=== PATIENT | male | born 1985 | race Caucasian/White ===

== ENCOUNTER 2017-01-21 16:35 | Inpatient (IN) | payer MEDICAID ==
[2017-01-21 17:17] VITALS: RESP 18; O2SAT 99
[2017-01-21] MEDS ORDERED: Sodium Chloride 0.9% 1,000 ML IV STA ×2 (17:27→19:50)
--- NOTE | 2017-01-21 17:29 | ED PDOC ---
HPI: General Adult Time Seen by Provider: 01/21/17 16:59 Chief Complaint (Nursing): GI Problem Chief Complaint (Provider): vomiting Additional Complaint(s): 31-year-old male with no past medical history presents to emergency department with three-day history of nausea and vomiting associated with epigastric pain. Patient believes that he became ill after drinking alcohol 3 nights ago. He denies consumption of any new foods that could've cause stomach upset. No associated fever or chills, no recent travel. No known sick contacts. Patient complains of overall body aches that started today. He is unable to tolerate even sips of water. Past Medical History Reviewed: Historical Data Vital Signs: Last Vital Signs Temp 97.6 F 01/21/17 16:47 Pulse 90 01/21/17 16:47 Resp 18 01/21/17 16:47 BP 146/85 01/21/17 16:47 Pulse Ox 99 01/21/17 17:32 - Medical History PMH: No Chronic Diseases - Surgical History Other surgeries: jaw fracture repair - Family History Family History: States: No Known Family Hx - Living Arrangements Living Arrangements: With Family - Social History Current smoker - smoking cessation education provided: Yes ("sometimes") Alcohol: Social Drugs: Denies - Allergies Allergies/Adverse Reactions: Allergies Allergy/AdvReac Type Severity Reaction Status Date / Time No Known Allergies Allergy Verified 01/21/17 16:46 Review of Systems ROS Statement: Except As Marked, All Systems Reviewed And Found Negative Constitutional: Positive for: Weakness, Other (body aches). Negative for: Fever Cardiovascular: Negative for: Chest Pain Respiratory: Negative for: Cough, Shortness of Breath, SOB with Exertion Gastrointestinal: Positive for: Nausea, Vomiting, Abdominal Pain. Negative for : Diarrhea, Constipation, Melena, Hematochezia, Hematemesis, Rectal Pain Genitourinary Male: Negative for: Dysuria, Frequency Physical Exam - Reviewed Nursing Documentation Reviewed: Yes Vital Signs Reviewed: Yes - Physical Exam Appears: Positive for: Well, Non-toxic, No Acute Distress Head Exam: Positive for: ATRAUMATIC Skin: Positive for: Diaphoresis, Pallor Eye Exam: Positive for: Normal appearance, EOMI Neck: Positive for: Normal Cardiovascular/Chest: Positive for: Regular Rate, Rhythm Respiratory: Positive for: Normal Breath Sounds Gastrointestinal/Abdominal: Positive for: Tenderness (RUQ, epigastric region). Negative for: Distended, Guarding, Rebound Back: Negative for: L CVA Tenderness, R CVA Tenderness Extremity: Positive for: Normal ROM. Negative for: Pedal Edema Neurologic/Psych: Positive for: Alert, Oriented - Laboratory Results Result Diagrams: 01/21/17 16:55 01/21/17 16:55 - ECG O2 Sat by Pulse Oximetry: 99 Pulse Ox Interpretation: Normal Medical Decision Making Medical Decision Makin31 year old with vomiting and abdominal pain Plan: CBC CMP Lipase Urine dip BAL UDS IVF IV zofran IV pepcid Abd US: IMPRESSION: 4 mm suspected gallbladder polyp. Heterogeneous echotexture of the liver and spleen. Overall echogenic appearance of the liver may be seen in setting of hepatic parenchymal disease or fatty infiltration. 8:00 pm Patient is still nauseous after initial Zofran dose given, additional [address] abdomen and pelvis with oral and IV contrast ordered. Disposition - Clinical Impression Clinical Impression: Abdominal pain, Vomiting - Patient ED Disposition Is Patient to be Admitted: Transfer of Care - Disposition Disposition: Transfer of Care Disposition Time: 20:00 Condition: FAIR Patient Signed Over To: Rico Fleming Handoff Comments: Case was signed out to DIANNA Fleming pending CT and final disposition
[2017-01-21 17:40] LABS: BASO # 0.1 K/uL (0.0-0.2); BASO % 0.3 % (0.0-2.0); EOS # 0.1 K/uL (0.0-0.7); EOS % 0.2 % (0.0-4.0); HEMATOCRIT 52.1 % (35.0-51.0); LYMPH # 1.4 K/uL (1.0-4.3); LYMPH % 5.7 % (20.0-40.0); MEAN CELL VOLUME 77.9 fl (80.0-94.0); MEAN CORPUSCULAR HEMOGLOBIN 26.7 pg (27.0-31.0); MEAN CORPUSCULAR HGB CONC 34.2 g/dL (33.0-37.0); MEAN PLATELET VOLUME 9.3 fl (7.2-11.7); MONO # 1.9 K/uL (0.0-0.8); MONO % 7.5 % (0.0-10.0); NEUT # 21.7 K/uL (1.8-7.0); NEUT % 86.3 % (50.0-75.0); PLATELET COUNT 371 K/uL (130-400); WHITE BLOOD COUNT 25.1 K/uL (4.8-10.8)
[2017-01-21 18:02] LABS: CALCIUM 11.4 mg/dL (8.4-10.2); POTASSIUM 4.3 MMOL/L (3.6-5.0)
[2017-01-21 18:09] LABS: TOTAL PROTEIN 11.6 G/DL (6.3-8.2)
--- NOTE | 2017-01-21 18:44 | US ---
HISTORY: epigastric/ruq abd pain, vomiting COMPARISON: None available TECHNIQUE: Sonographic evaluation of the abdomen. FINDINGS: LIVER: Measures 14.6 cm in sagittal dimension. Heterogeneous echotexture. Overall echogenic appearance of the liver may be seen in setting of hepatic parenchymal disease or fatty infiltration. No focal hepatic mass identified. The main portal vein appears patent with normal directional flow. No intrahepatic bile duct dilatation. GALLBLADDER: 4 mm echogenic non shadowing focus presumably gallbladder polyp. No gallstones. No gallbladder wall thickening. Negative sonographic Weathers's sign as assessed by the color repairer. COMMON BILE DUCT: Measures 4 mm. PANCREAS: Not well visualized. RIGHT KIDNEY: Measures 10.4 x 3.9 x 5.6 cm. No obstructing calculus or hydronephrosis identified. LEFT KIDNEY: Measures 11.4 x 6.4 x 5.0 cm. No obstructing calculus or hydronephrosis identified. SPLEEN: Measures approximately 12.0 x 3.7 x 4.3 cm. Heterogeneous echotexture. AORTA: Limited views appear grossly unremarkable. IVC: Limited views appear grossly unremarkable. OTHER FINDINGS: None. IMPRESSION: 4 mm suspected gallbladder polyp. Heterogeneous echotexture of the liver and spleen. Overall echogenic appearance of the liver may be seen in setting of hepatic parenchymal disease or fatty infiltration.
[2017-01-21] MEDS ORDERED: Iohexol 240 (50 ml) PO STA (19:51)
[2017-01-21 20:45] LABS: VENOUS BLOOD GAS BASE EXCESS 6.4 mmol/L (0.0-2.0); VENOUS BLOOD GAS PCO2 36 mmHg (40-60); VENOUS BLOOD PH 7.52 (7.32-7.43)
[2017-01-21 20:54] LABS: ALCOHOL SERUM < 10 mg/dl (0-10)
[2017-01-21] MEDS ORDERED: Promethazine 25 MG in Sodium Chloride 0.9% 50 ML IVPB ONE (21:27)
[2017-01-21 21:59] LABS: NEUTROPHIL 83 % (42-75); TOTAL CELLS COUNTED 100
[2017-01-21] MEDS ORDERED: Iohexol 240 (50 ml) ONE (22:00)
[2017-01-21] MEDS ORDERED: Sodium Chloride 0.9% 1,000 ML IV SCH (22:15)
--- NOTE | 2017-01-21 23:12 | CP.PCM.HP ---
History of Present Illness - History of Present Illness History of Present Illness: CC: n/v, muscle cramps HPI: This is a 31 y/o male with no chronic medical problems who comes in with c/ o n/v, muscle cramps and malaise for the past several days. States the symptoms started when he was 'having a drink at a friend's house'. The symptoms have progressively gotten worse so he came in today. Denies f/c. Denies diarrhea. States muscle cramps were 'all over' jose roberto limbs. Denies any medications, supplements or drugs. States he may have been dehydrated while drinking, and does not drink that much water. Does state he started doing P90X about 2 weeks ago after being sedentary for some time (an intense exercise routine). ROS: 14 systems reviewed, negative other than HPI MHx/SHx: None Allergies: None Medications: None Family Hx: reviewed, none Social Hx: Lives with family, has been incarcerated for some time recently, states 'occasional' EtOH (2 drinks/week) and 'occasional' tobacco Present on Admission - Present on Admission Any Indicators Present on Admission: No Past Patient History - Past Social History Alcohol: Social Drugs: Denies - PSYCHIATRIC Hx Substance Use: No - SURGICAL HISTORY Hx Surgeries: Yes Other/Comment: Jaw surgery. Meds Allergies/Adverse Reactions: Allergies Allergy/AdvReac Type Severity Reaction Status Date / Time No Known Allergies Allergy Verified 01/21/17 16:46 Physical Exam - Constitutional Appears: No Acute Distress - Head Exam Head Exam: ATRAUMATIC, NORMOCEPHALIC - Eye Exam Eye Exam: EOMI, PERRL - ENT Exam ENT Exam: Mucous Membranes Dry - Neck Exam Neck exam: Positive for: Full Rom - Respiratory Exam Respiratory Exam: Clear to Auscultation Bilateral, NORMAL BREATHING PATTERN - Cardiovascular Exam Cardiovascular Exam: REGULAR RHYTHM, +S1, +S2 - GI/Abdominal Exam GI & Abdominal Exam: Normal Bowel Sounds, Soft Additional comments: no ttp - Extremities Exam Extremities exam: Positive for: normal inspection Additional comments: no ttp anywhere currently - Neurological Exam Neurological exam: Alert, CN II-XII Intact, Oriented x3 - Psychiatric Exam Psychiatric exam: Normal Affect, Normal Mood - Skin Skin Exam: Dry, Warm Results - Vital Signs Recent Vital Signs: Last Vital Signs Temp 97.6 F 01/21/17 16:47 Pulse 90 01/21/17 16:47 Resp 18 01/21/17 16:47 BP 146/85 01/21/17 16:47 Pulse Ox 99 01/21/17 20:00 - Labs Result Diagrams: 01/21/17 16:55 01/21/17 16:55 - Imaging and Cardiology US - abdomen Status: Image reviewed by me (GB polyp, fatty liver) Assessment & Plan (1) Abdominal pain Assessment and Plan: 31 y/o male with no MHx presenting with n/v/abd pain/mm pain and found to have Rhabdo with ARF. Likely due to strenuous activity associated with P90X possibly in the setting of volume depletion. Cannot rule out effect of other substance ingestion however. -Obs -Repeat CPK in AM as well as CMP/CBC given other lab abnormalities -- may all be associated with rhabdo however (abn lfts, elevated wc) -f/u UDS -Aggressive hydration -If renal function not improved with hydration by AM, may need renal consult -For now ambulation only for DVT PPx Status: Acute (2) Vomiting Status: Acute (3) Muscle pain Status: Acute (4) Rhabdomyolysis Status: Acute (5) CHYNA (acute kidney injury) Status: Acute (6) DVT prophylaxis Status: Acute
--- NOTE | 2017-01-21 23:14 | ED PDOC ---
- Laboratory Results Result Diagrams: 01/21/17 16:55 01/21/17 16:55 - ECG O2 Sat by Pulse Oximetry: 99 - Progress ED Course And Treament: Patient re-examined. Persistent nausea noted Phenergan 25 mg iv x 1 dose ordered d/w patient risks of discharge (renal insufficiency//permanent disability) at this time and benefits of admission (improvement of renal insufficiency/ decrease of CPK/hydration/ evaluation of elevated wbc with abdominal CT) . d/w Dr. Neville for admission for Rhabdomylosis. Admitted to med/surg 22:[address] Neville Pending CT abdomen/pelvis. Patient eloped prior to transfer to [address] [place] [address]. (Has removed IV prior to leaving). Disposition - Clinical Impression Clinical Impression: Abdominal pain, Vomiting - POA Present On Arrival: None - Disposition Disposition: Eloped Disposition Time: 22:07 Condition: FAIR
[2017-01-22 00:08] VITALS: BP 125/69; PULSE 88; TEMP 98.8
== END 2017-01-22 01:43 | disposition left against medical advice (07) | DRG 558 ==
LOC: H.ER 16:35 → H.EROBSV 19:58 → H.ERHOLD 22:26 → OBSVTOIN 22:28
PROVIDERS: ADMIT Internal Medicine; ATTEND Internal Medicine
DX: M62.82 Rhabdomyolysis (principal); N17.9 Acute kidney failure, unspecified; R10.11 Right upper quadrant pain; R10.13 Epigastric pain; F17.200 Nicotine dependence, unspecified, uncomplicated

== ENCOUNTER 2017-01-22 08:13 | Observation (INO) | payer MEDICAID ==
[2017-01-22 08:22] VITALS: RESP 20; BMI 26.6
[2017-01-22] MEDS ORDERED: Sodium Chloride 0.9% 1,000 ML IV STA (09:03)
[2017-01-22 09:48] LABS: BASO # 0.1 K/uL (0.0-0.2); BASO % 0.8 % (0.0-2.0); EOS # 0.1 K/uL (0.0-0.7); EOS % 0.4 % (0.0-4.0); LYMPH # 1.9 K/uL (1.0-4.3); LYMPH % 11.7 % (20.0-40.0); MEAN CELL VOLUME 79.1 fl (80.0-94.0); MEAN CORPUSCULAR HEMOGLOBIN 26.4 pg (27.0-31.0); MEAN CORPUSCULAR HGB CONC 33.3 g/dL (33.0-37.0); MEAN PLATELET VOLUME 8.9 fl (7.2-11.7); MONO # 2.1 K/uL (0.0-0.8); MONO % 12.9 % (0.0-10.0); NEUT # 12.1 K/uL (1.8-7.0); NEUT % 74.2 % (50.0-75.0); WHITE BLOOD COUNT 16.4 K/uL (4.8-10.8)
[2017-01-22 09:58] LABS: ALB/GLOB RATIO 1.1 (1.0-2.1); BILIRUBIN,TOTAL 1.7 mg/dl (0.2-1.3); CALCIUM 9.4 mg/dL (8.4-10.2); POTASSIUM 3.6 MMOL/L (3.6-5.0); TOTAL PROTEIN 9.1 G/DL (6.3-8.2)
[2017-01-22 10:15] LABS: RBC URINE < 1 /hpf (0-3); URINE BILIRUBIN NEGATIVE (NEGATIVE); URINE BLOOD MODERATE (NEGATIVE); URINE COLOR COLORLESS (YELLOW); URINE GLUCOSE (UA) NEG (Normal); URINE KETONE NEGATIVE (NEGATIVE); URINE LEUKOCYTE ESTERASE NEG Leu/uL (Negative); URINE PROTEIN NEGATIVE (NEGATIVE); URINE UROBILINOGEN 0.2-1.0 mg/dL (0.2-1.0)
--- NOTE | 2017-01-22 10:47 | ED PDOC ---
HPI: General Adult Time Seen by Provider: 01/22/17 09:02 Chief Complaint (Nursing): Abdominal Pain Chief Complaint (Provider): abdominal pain, muscle pains History Per: Patient History/Exam Limitations: no limitations Onset/Duration Of Symptoms: Days (2) Current Symptoms Are (Timing): Still Present Severity: Moderate Recently: Seen In ED (signed AMA) Additional History Per: Prior Records Additional Complaint(s): 31yo male c/o ongoing muscle aches and abdominal pain x2 days. Seen in ED last night and found to be in rhabdomyolysis, signed AMA after he learned his girlfriend couldnt stay with him overnight. Patient also admits to doing meth and drinking heavily a few days ago, initiating a new workout regimen. Past Medical History Reviewed: Historical Data, Nursing Documentation, Vital Signs Vital Signs: Last Vital Signs Temp 98.2 F 01/22/17 21:05 Pulse 83 01/22/17 21:05 Resp 20 01/22/17 21:05 BP 145/84 01/22/17 21:05 Pulse Ox 98 01/23/17 16:46 - Medical History PMH: No Chronic Diseases - Surgical History Surgical History: No Surg Hx - Family History Family History: States: Unknown Family Hx - Living Arrangements Living Arrangements: Other - Social History Current smoker - smoking cessation education provided: Yes Alcohol: Occasional Drugs: Methamphetamine - Home Medications Home Medications: Ambulatory Orders Medication Instructions Recorded No Known Home Med 01/22/17 - Allergies Allergies/Adverse Reactions: Allergies Allergy/AdvReac Type Severity Reaction Status Date / Time No Known Allergies Allergy Verified 01/22/17 08:32 Review of Systems Constitutional: Positive for: Weakness, Malaise ENT: Negative for: Ear Pain, Ear Discharge Cardiovascular: Positive for: Palpitations. Negative for: Chest Pain Respiratory: Negative for: Cough, Shortness of Breath Gastrointestinal: Positive for: Nausea, Vomiting, Abdominal Pain Genitourinary Male: Positive for: Other (dark urine). Negative for: Dysuria, Frequency Musculoskeletal: Positive for: Other (muscle cramping) Skin: Negative for: Rash, Lesions, Jaundice Neurological: Positive for: Weakness (generalized). Negative for: Numbness Physical Exam - Reviewed Nursing Documentation Reviewed: Yes Vital Signs Reviewed: Yes - Physical Exam Appears: Positive for: Non-toxic, No Acute Distress Head Exam: Positive for: ATRAUMATIC, NORMAL INSPECTION, NORMOCEPHALIC Skin: Positive for: Normal Color, Warm, DRY Eye Exam: Positive for: EOMI, Normal appearance, PERRL ENT: Positive for: Normal ENT Inspection Neck: Positive for: Normal, Painless ROM Cardiovascular/Chest: Positive for: Regular Rate, Rhythm Respiratory: Positive for: CNT, Normal Breath Sounds Gastrointestinal/Abdominal: Positive for: Bowel Sounds, Soft, Tenderness (mild diffuse) Back: Positive for: Normal Inspection Extremity: Positive for: Normal ROM, Other (+muscle tenderness). Negative for: Swelling Neurologic/Psych: Positive for: Alert. Negative for: Motor/Sensory Deficits, Aphasia - Laboratory Results Result Diagrams: 01/22/17 09:39 01/22/17 09:39 - ECG O2 Sat by Pulse Oximetry: 98 Medical Decision Making Medical Decision Making: prior chart reviewed, revealing significant acute renal failure with rhabdomyolysis CK 26K. IV initiated. CT abd pelv reordered given persistent pain and elevated WBC last night. labs reviewed, CK remains significantly elevated approx 20,000. US reveals blood without RBC c/w myoglobinuria. Renal function improved since yesterday but still shows evidence of acute kidney injury. IVF continued, place Obs tele to hospitalist. Disposition - Clinical Impression Clinical Impression: Abdominal pain, Rhabdomyolysis - Patient ED Disposition Is Patient to be Admitted: Yes Counseled Patient/Family Regarding: Studies Performed, Diagnosis - Disposition Disposition Time: 10:35 Condition: STABLE - Pt Status Changed To: Hospital Disposition Of: Observation - POA Present On Arrival: None
[2017-01-22] MEDS ORDERED: Sodium Chloride 0.9% 200 ML IV STA (10:50)
--- NOTE | 2017-01-22 11:08 | CT ---
PROCEDURE: CT Abdomen and Pelvis without intravenous contrast HISTORY: Abdominal pain rhabdomyolysis, leukocytosis COMPARISON: None. TECHNIQUE: CT scan of the abdomen and pelvis was performed without administration of intravenous contrast. Oral contrast was not administered. Coronal and sagittal reformatted images were obtained. Radiation dose: Total exam DLP = 2155.24 mGy-cm. This CT exam was performed using one or more of the following dose reduction techniques: Automated exposure control, adjustment of the mA and/or kV according to patient size, and/or use of iterative reconstruction technique. FINDINGS: LOWER THORAX: The lung bases are clear. LIVER: The liver is normal in size. No gross lesion or ductal dilatation. GALLBLADDER AND BILE DUCTS: There are no calcified gallstones. PANCREAS: The pancreas is normal in size No gross lesion or ductal dilatation. SPLEEN: There is borderline splenomegaly. ADRENALS: Both adrenal glands are normal in size without discrete nodule. KIDNEYS AND URETERS: Both kidneys are normal in size without nephrolithiasis or hydronephrosis. VASCULATURE: Normal in appearance. No aortic aneurysm BOWEL: The small bowel loops are normal in caliber. The colon is normal in appearance. No evidence of bowel dilatation or wall thickening. APPENDIX: Normal appendix. PERITONEUM: No free fluid. No free air. LYMPH NODES: No enlarged lymph nodes. BLADDER: Normal in appearance. REPRODUCTIVE: Unremarkable. BONES: No acute fracture. Within normal limits for the patient's age. OTHER FINDINGS: None. IMPRESSION: No acute abdominal or pelvic abnormality. Borderline splenomegaly.
--- NOTE | 2017-01-22 13:33 | CP.PCM.HP ---
History of Present Illness - History of Present Illness History of Present Illness: 31 yo male with no significant PMH admitted yesterday because of rhabdomyolysis but signed out AMA before he was brought upstairs. Patient came back this morning complaining of nausea and gastric hyperacidity. Patient came in yesterday with muscle cramps all over his body since 2 days ago after taking amphetamine and skateboarding from [place] to [facility]. Accompanying symptoms were multiple bouts of vomiting, abdominal pain and cramping pain all over his body. He was admitted with rhabdomyolysis and was vigorously hydrated only to sign out AMA. Present on Admission - Present on Admission Any Indicators Present on Admission: No History of DVT/PE: No History of Uncontrolled Diabetes: No Urinary Catheter: No Decubitus Ulcer Present: No Review of Systems - Review of Systems All systems: reviewed and no additional remarkable complaints except (aside from those mentioned above, 12 point system review were negative by me) Past Patient History - Past Social History Smoking Status: Never Smoked Chewing Tobacco Use: No Cigar Use: No Alcohol: Occasional Drugs: Methamphetamine - CARDIAC Hx Cardiac Disorders: No - PULMONARY Hx Respiratory Disorders: No - NEUROLOGICAL Hx Neurological Disorder: No - HEENT Hx HEENT Problems: No - RENAL Hx Chronic Kidney Disease: No - ENDOCRINE/METABOLIC Hx Endocrine Disorders: No - HEMATOLOGICAL/ONCOLOGICAL Hx Blood Disorders: No - INTEGUMENTARY Hx Dermatological Problems: No - MUSCULOSKELETAL/RHEUMATOLOGICAL Hx Musculoskeletal Disorders: No - GASTROINTESTINAL Hx Gastrointestinal Disorders: No - GENITOURINARY/GYNECOLOGICAL Hx Genitourinary Disorders: No - PSYCHIATRIC Hx Psychophysiologic Disorder: No Hx Substance Use: No - SURGICAL HISTORY Hx Surgeries: Yes Other/Comment: Jaw surgery. - ANESTHESIA Hx Anesthesia: No Hx Anesthesia Reactions: No Hx Malignant Hyperthermia: No Meds Allergies/Adverse Reactions: Allergies Allergy/AdvReac Type Severity Reaction Status Date / Time No Known Allergies Allergy Verified 01/22/17 08:32 Physical Exam - Constitutional Appears: No Acute Distress - Head Exam Head Exam: ATRAUMATIC - Eye Exam Eye Exam: absent: Scleral icterus - ENT Exam ENT Exam: Mucous Membranes Moist - Neck Exam Neck exam: Negative for: Meningismus - Respiratory Exam Respiratory Exam: absent: Rhonchi, Wheezes, Respiratory Distress - Cardiovascular Exam Cardiovascular Exam: REGULAR RHYTHM, +S1, +S2 - GI/Abdominal Exam GI & Abdominal Exam: Soft. absent: Tenderness - Rectal Exam Rectal Exam: Deferred - Extremities Exam Extremities exam: Negative for: pedal edema - Neurological Exam Neurological exam: Alert, Oriented x3 - Psychiatric Exam Psychiatric exam: Anxious, Manic - Skin Skin Exam: Dry, Intact Results - Vital Signs Recent Vital Signs: Last Vital Signs Temp 98.0 F 01/22/17 08:21 Pulse 90 01/22/17 08:21 Resp 20 01/22/17 08:21 BP 132/78 01/22/17 08:21 Pulse Ox 98 01/22/17 13:01 - Labs Result Diagrams: 01/22/17 09:39 01/22/17 09:39 Labs: Laboratory Results - last 24 hr 01/22/17 01/22/17 09:39 11:13 WBC 16.4 H RBC 5.57 Hgb 14.7 D Hct 44.0 MCV 79.1 L MCH 26.4 L MCHC 33.3 RDW 14.0 Plt Count 275 MPV 8.9 Neut % (Auto) 74.2 Lymph % (Auto) 11.7 L [place] % (Auto) 12.9 H Eos % (Auto) 0.4 Baso % (Auto) 0.8 Neut # 12.1 H Lymph # 1.9 [place] # 2.1 H Eos # 0.1 Baso # 0.1 Sodium 135 Potassium 3.6 Chloride 89 L Carbon Dioxide 25 Anion Gap 25 H BUN 44 H Creatinine 1.7 H Est GFR ( Amer) 57 Est GFR (Non-Af Amer) 47 Random Glucose 116 H Calcium 9.4 Total Bilirubin 1.7 H AST 335 H ALT 100 H D Alkaline Phosphatase 76 Total Creatine Kinase 56774 H Total Protein 9.1 H Albumin 4.8 Globulin 4.3 H Albumin/Globulin Ratio 1.1 Lipase 82 Urine Color Colorless Urine Clarity Clear Urine pH 7.0 Ur Specific [place] 1.005 Urine Protein Negative Urine Glucose (UA) Neg Urine Ketones Negative Urine Blood Moderate Urine Nitrate Negative Urine Bilirubin Negative Urine Urobilinogen 0.2-1.0 Ur Leukocyte Esterase Neg Urine RBC (Auto) < 1 Assessment & Plan (1) Rhabdomyolysis Status: Acute Comment: place on observation in med/surg. vigorous IV hydration with NSS at 200cc/hr. BMP, CPK in am. Zofran 4mg IV q 4hrs prn for N/V. Tylenol 650mg PO q 4hrs prn for pain (2) CHYNA (acute kidney injury) Status: Acute Comment: secondary to dehydration and rhabdomyolysis. continue hydration. repeat BMP and CPK in am (3) Substance abuse Status: Acute Comment: psyche consult with Dr Hernandez
[2017-01-22] MEDS ORDERED: Sodium Chloride 0.9% 1,000 ML IV SCH (13:45)
[2017-01-22] MEDS ORDERED: Alum-Mag Hydrox-Simethicone Susp (30 mL) PO PRN (16:18)
[2017-01-22 16:48] VITALS: O2SAT 98
[2017-01-22 21:06] VITALS: BP 145/84; PULSE 83; TEMP 98.2
[2017-01-23] MEDS ORDERED: Pantoprazole 40 mg EC Tab PO SCH (09:00)
== END 2017-01-22 23:20 | disposition left against medical advice (07) ==
LOC: H.ER 08:13 → H.ERHOLD 12:51 → H.MEDSURG1 14:59
DX: M62.82 Rhabdomyolysis (principal); N17.9 Acute kidney failure, unspecified; E86.0 Dehydration; F19.10 Other psychoactive substance abuse, uncomplicated; F17.200 Nicotine dependence, unspecified, uncomplicated

== ENCOUNTER 2018-04-05 12:33 | Observation (INO) | payer MEDICAID ==
[2018-04-05 12:33] VITALS: BMI 26.6
[2018-04-05 13:29] VITALS: BP 125/74; RESP 18; TEMP 99.1; O2SAT 98
[2018-04-05] MEDS ORDERED: Sodium Chloride 0.9% 1,000 ML IV STA ×2 (13:55→15:56)
[2018-04-05 14:12] LABS: BASO # 0.1 K/uL (0.0-0.2); BASO % 0.6 % (0.0-2.0); EOS # 0.1 K/uL (0.0-0.7); EOS % 0.5 % (0.0-4.0); LYMPH # 2.2 K/uL (1.0-4.3); LYMPH % 16.2 % (20.0-40.0); MEAN CELL VOLUME 77.1 fl (80.0-94.0); MEAN CORPUSCULAR HEMOGLOBIN 26.4 pg (27.0-31.0); MEAN CORPUSCULAR HGB CONC 34.3 g/dL (33.0-37.0); MEAN PLATELET VOLUME 9.1 fl (7.2-11.7); MONO # 1.9 K/uL (0.0-0.8); MONO % 13.6 % (0.0-10.0); NEUT # 9.5 K/uL (1.8-7.0); NEUT % 69.1 % (50.0-75.0); NRBC % 0.1 % (0.0-0.0); RBC 5.66 Mil/uL (4.40-5.90); RED CELL DISTRIBUTION WIDTH 13.3 % (11.5-14.5); WHITE BLOOD COUNT 13.7 K/uL (4.8-10.8)
[2018-04-05 14:23] LABS: ALB/GLOB RATIO 1.3 (1.0-2.1); ALBUMIN 5.2 g/dL (3.5-5.0); ALT/SGPT 62 U/L (21-72); AST/SGOT 170 U/L (17-59); BLOOD UREA NITROGEN 35 mg/dl (9-20); CALCIUM 9.6 mg/dL (8.4-10.2); GFR AFRICAN-AMERICAN > 60; GFR NON-AFRICAN AMERICAN 50
--- NOTE | 2018-04-05 14:35 | ED PDOC ---
HPI:Nausea, Vomiting, Diarrhea Time Seen by Provider: 04/05/18 13:35 Chief Complaint (Nursing): GI Problem Chief Complaint (Provider): Nausea and Vomiting History Per: Patient History/Exam Limitations: no limitations Onset/Duration Of Symptoms: Days (x2) Current Symptoms Are (Timing): Still Present Severity: None Associated Symptoms: Nausea, Vomiting. denies: Fever, Diarrhea, Chest Pain Exacerbating Factors: None Alleviating Factors: None Additional Complaint(s): 32 year old male presents to the emergency department complaining of nausea and vomiting (non bloody, non bilious) x2 days. Patient reports that over the weekend he was drinking and may have used "spice" and marijuana. He states that this morning he had very hard stools. Denies diarrhea, abdominal pain, previous abdominal surgery, pain, fever, hematochezia, hematemesis, melena and chest pain. FAMILY PROVIDER,NO Past Medical History Reviewed: Historical Data, Nursing Documentation Vital Signs: Last Vital Signs Temp 99.1 F 04/05/18 13:23 Pulse 94 H 04/05/18 13:23 Resp 18 04/05/18 13:23 BP 125/74 04/05/18 13:23 Pulse Ox 98 04/05/18 13:23 - Medical History PMH: Anxiety, Depression, Paranoia Denies: HIV, Chronic Kidney Disease - Surgical History Surgical History: No Surg Hx - Family History Family History: States: Unknown Family Hx - Social History Alcohol: Occasional Drugs: Other (marijuana) - Immunization History Hx Tetanus Toxoid Vaccination: Yes Hx Influenza Vaccination: Yes Hx Pneumococcal Vaccination: No - Home Medications Home Medications: Ambulatory Orders Medication Instructions Recorded QUEtiapine [Seroquel] 100 mg PO Q8 04/05/18 - Allergies Allergies/Adverse Reactions: Allergies Allergy/AdvReac Type Severity Reaction Status Date / Time No Known Allergies Allergy Verified 04/05/18 13:21 Review of Systems Constitutional: Negative for: Fever Gastrointestinal: Positive for: Nausea, Vomiting, Hematochezia. Negative for: Abdominal Pain, Diarrhea, Melena, Hematemesis Physical Exam - Reviewed Nursing Documentation Reviewed: Yes Vital Signs Reviewed: Yes - Physical Exam Appears: Positive for: Non-toxic, No Acute Distress Head Exam: Positive for: ATRAUMATIC, NORMAL INSPECTION, NORMOCEPHALIC Skin: Positive for: Normal Color, Warm, Dry. Negative for: Rash Eye Exam: Positive for: Normal appearance, EOMI. Negative for: Nystagmus ENT: Positive for: Normal ENT Inspection. Negative for: Nasal Congestion, Tonsillar Exudate, Tonsillar Swelling Neck: Positive for: Normal, Supple Cardiovascular/Chest: Positive for: Regular Rate, Rhythm, Chest Non Tender. Negative for: Murmur, Tachycardia Respiratory: Positive for: Normal Breath Sounds. Negative for: Rales, Rhonchi, Wheezing, Respiratory Distress Gastrointestinal/Abdominal: Positive for: Bowel Sounds, Soft, Other (actively retching ). Negative for: Tenderness (abdomn non tender to deep palpation), Mass, Guarding, Rebound Back: Positive for: Normal Inspection. Negative for: L CVA Tenderness, R CVA Tenderness, Vertebral Tenderness Extremity: Positive for: Normal ROM. Negative for: Tenderness, Calf Tenderness , Deformity, Swelling Neurologic/Psych: Positive for: Alert, Oriented, Gait - Laboratory Results Result Diagrams: 04/05/18 14:05 04/05/18 14:05 - ECG ECG: Positive for: Interpreted By Ri ECG Rhythm: Positive for: Sinus Bradycardia. Negative for: ST/T Changes Rate: 59 O2 Sat by Pulse Oximetry: 98 (RA) Pulse Ox Interpretation: Normal Medical Decision Making Medical Decision Makin Initial Impression 32 year old male presenting with nausea and vomiting Initial Plan: * Alcohol Serum * CMP * Drug Screen * CBC * NS 1000 mls IV 1000 mls/hr * CBC * Zofran 4mg PO * Urinalysis * Reevaluation 1455 Case d/w Dr. Singh who recommends ABG, magnesium level, CPK, and admission. 1555 CPK: 5742 Results d/w Dr. Singh who recommends additional NS boluses. IV NS bolus x 1 ordered. 1618 Case d/w Dr. Lovett, hospitalist, and arrangements made for admission. [address] Lovett in ED. Documented by Renetta Belcher acting as a scribe for Black Lucero PA-C. All medical record entries made by the Scribe were at my direction and personally dictated by me. I have reviewed the chart and agree that the record accurately reflects my personal performance of the history, physical exam, medical decision making, and the department course for this patient. I have also personally directed, reviewed, and agree with the discharge instructions and disposition. Disposition - Clinical Impression Clinical Impression: CHYNA (acute kidney injury), Rhabdomyolysis - Patient ED Disposition Is Patient to be Admitted: Yes - Disposition Disposition: Routine/Home Disposition Time: 14:55 Condition: STABLE
[2018-04-05 15:11] LABS: URINE BILIRUBIN NEGATIVE (NEGATIVE); URINE BLOOD SMALL (NEGATIVE); URINE CLARITY CLEAR (Clear); URINE COLOR STRAW (YELLOW); URINE GLUCOSE (UA) NEG (Normal); URINE LEUKOCYTE ESTERASE NEG Leu/uL (Negative); URINE PROTEIN NEGATIVE (NEGATIVE); URINE UROBILINOGEN 0.2-1.0 mg/dL (0.2-1.0)
[2018-04-05 15:18] LABS: ABG ALLEN TEST YES; ARTERIAL BLOOD GAS HCO3 34.3 mmol/L (21-28); ARTERIAL BLOOD GAS HEMOGLOBIN 14.8 g/dL (11.7-17.4); ARTERIAL BLOOD GAS O2 CAPACITY 19.7 mL/dL (16-24); ARTERIAL BLOOD GAS O2 CONTENT 19.1 ML/dL (15-23); ARTERIAL BLOOD GAS O2 SAT 96.9 % (95-98); ARTERIAL BLOOD GAS PCO2 45 mm/Hg (35-45); ARTERIAL BLOOD GAS PH 7.52 (7.35-7.45); ARTERIAL BLOOD GAS PO2 66 mm/Hg (80-100); ARTERIAL BLOOD GAS TCO2 38.1 mmol/L (22-28)
[2018-04-05 15:29] LABS: BARBITURATES, UR NEGATIVE (NEGATIVE); BENZODIAZEPINES, UR NEGATIVE (NEGATIVE); OPIATES, UR NEGATIVE (NEGATIVE); PHENCYCLIDINE, UR NEGATIVE (NEGATIVE)
[2018-04-05] MEDS: Potassium CL 10mEq/100ml 100 ML IVPB SCH ×3 (15:30→19:37)
[2018-04-05 15:41] VITALS: PULSE 59
--- NOTE | 2018-04-05 16:59 | CP.PCM.HP ---
History of Present Illness - History of Present Illness History of Present Illness: 32 yo male with no significant PMH came in because of nausea and vomiting since 3 days ago. Condition was preceded with 2 days of drinking alcohol. Denied fever , chills, chest pain or SOB. Admitted having abdominal pain earlier because of persistent vomiting but had since abated. Present on Admission - Present on Admission Any Indicators Present on Admission: No History of DVT/PE: No History of Uncontrolled Diabetes: No Urinary Catheter: No Decubitus Ulcer Present: No Review of Systems - Review of Systems All systems: reviewed and no additional remarkable complaints except (aside from those mentioned above, 12 point system review were negative by me) Past Patient History - Tetanus Immunizations Tetanus Immunization: Unknown - Past Medical History & Family History Past Medical History?: No - Past Social History Smoking Status: Unknown If Ever Smoked Alcohol: Occasional Drugs: Cannabis - CARDIAC Hx Cardiac Disorders: No - PULMONARY Hx Respiratory Disorders: No - NEUROLOGICAL Hx Neurological Disorder: No - HEENT Hx HEENT Problems: No - RENAL Hx Chronic Kidney Disease: No - ENDOCRINE/METABOLIC Hx Endocrine Disorders: No - HEMATOLOGICAL/ONCOLOGICAL Hx Human Immunodeficiency Virus (HIV): No - INTEGUMENTARY Hx Dermatological Problems: No - MUSCULOSKELETAL/RHEUMATOLOGICAL Hx Falls: No - GASTROINTESTINAL Hx Gastrointestinal Disorders: No - GENITOURINARY/GYNECOLOGICAL Hx Genitourinary Disorders: No - PSYCHIATRIC Hx Anxiety: Yes Hx Depression: Yes Hx Paranoia: Yes - SURGICAL HISTORY Hx Surgeries: No - ANESTHESIA Hx Anesthesia: No Meds Allergies/Adverse Reactions: Allergies Allergy/AdvReac Type Severity Reaction Status Date / Time No Known Allergies Allergy Verified 04/05/18 13:21 Physical Exam - Constitutional Appears: No Acute Distress - Head Exam Head Exam: ATRAUMATIC - Eye Exam Eye Exam: absent: Scleral icterus - ENT Exam ENT Exam: Mucous Membranes Moist - Neck Exam Neck exam: Negative for: Meningismus - Respiratory Exam Respiratory Exam: absent: Rales, Rhonchi, Wheezes, Respiratory Distress - Cardiovascular Exam Cardiovascular Exam: REGULAR RHYTHM, +S1, +S2 - GI/Abdominal Exam GI & Abdominal Exam: Soft. absent: Tenderness - Rectal Exam Rectal Exam: Deferred - Extremities Exam Extremities exam: Negative for: calf tenderness, pedal edema - Back Exam Back exam: absent: tenderness - Neurological Exam Neurological exam: Alert, Oriented x3 - Psychiatric Exam Psychiatric exam: Normal Affect - Skin Skin Exam: Dry, Intact Results - Vital Signs Recent Vital Signs: Last Vital Signs Temp 99.1 F 04/05/18 13:23 Pulse 59 L 04/05/18 16:43 Resp 18 04/05/18 13:23 BP 125/74 04/05/18 13:23 Pulse Ox 98 04/05/18 16:43 - Labs Result Diagrams: 04/05/18 14:05 04/05/18 14:05 Labs: Laboratory Results - last 24 hr 04/05/18 04/05/18 04/05/18 14:05 14:05 14:59 WBC 13.7 H RBC 5.66 Hgb 15.0 Hct 43.6 MCV 77.1 L D MCH 26.4 L MCHC 34.3 RDW 13.3 Plt Count 238 MPV 9.1 Neut % (Auto) 69.1 Lymph % (Auto) 16.2 L [place] % (Auto) 13.6 H Eos % (Auto) 0.5 Baso % (Auto) 0.6 Neut # (Auto) 9.5 H Lymph # (Auto) 2.2 [place] # (Auto) 1.9 H Eos # (Auto) 0.1 Baso # (Auto) 0.1 pCO2 pO2 HCO3 ABG pH ABG Total CO2 ABG O2 Saturation ABG O2 Content ABG Base Excess ABG Hemoglobin ABG Carboxyhemoglobin POC ABG HHb (Measured) ABG Methemoglobin ABG O2 Capacity [place] Test A-a O2 Difference Hgb O2 Saturation FiO2 Sodium 127 L Potassium 2.6 L Chloride 74 L Carbon Dioxide 36 H Anion Gap 20 BUN 35 H Creatinine 1.6 H Est GFR ( Amer) > 60 Est GFR (Non-Af Amer) 50 Random Glucose 139 H Calcium 9.6 Magnesium Total Bilirubin 1.9 H AST 170 H ALT 62 Alkaline Phosphatase 85 Total Creatine Kinase Total Protein 9.2 H Albumin 5.2 H Globulin 4.0 H Albumin/Globulin Ratio 1.3 Urine Color Urine Clarity Urine pH Ur Specific [place] Urine Protein Urine Glucose (UA) Urine Ketones Urine Blood Urine Nitrate Urine Bilirubin Urine Urobilinogen Ur Leukocyte Esterase Urine RBC (Auto) Urine Microscopic WBC Urine Opiates Screen Negative Urine Methadone Screen Negative Ur Barbiturates Screen Negative Ur Phencyclidine Scrn Negative Ur Amphetamines Screen Negative U Benzodiazepines Scrn Negative U Oth Cocaine Metabols Negative U Cannabinoids Screen Negative Alcohol, Quantitative < 10 04/05/18 04/05/18 04/05/18 14:59 14:59 15:14 WBC RBC Hgb Hct MCV MCH MCHC RDW Plt Count MPV Neut % (Auto) Lymph % (Auto) [place] % (Auto) Eos % (Auto) Baso % (Auto) Neut # (Auto) Lymph # (Auto) [place] # (Auto) Eos # (Auto) Baso # (Auto) pCO2 45 pO2 66 L HCO3 34.3 H ABG pH 7.52 H ABG Total CO2 38.1 H ABG O2 Saturation 96.9 ABG O2 Content 19.1 ABG Base Excess 12.2 H ABG Hemoglobin 14.8 ABG Carboxyhemoglobin 3.2 H POC ABG HHb (Measured) 2.9 ABG Methemoglobin 2.2 ABG O2 Capacity 19.7 Faisal Test Yes A-a O2 Difference 27.0 Hgb O2 Saturation 91.6 L FiO2 21.0 Sodium Potassium Chloride Carbon Dioxide Anion Gap BUN Creatinine Est GFR ( Amer) Est GFR (Non-Af Amer) Random Glucose Calcium Magnesium 2.3 Total Bilirubin AST ALT Alkaline Phosphatase Total Creatine Kinase 5742 H Total Protein Albumin Globulin Albumin/Globulin Ratio Urine Color Straw Urine Clarity Clear Urine pH 6.0 Ur Specific [place] 1.005 Urine Protein Negative Urine Glucose (UA) Neg Urine Ketones Negative Urine Blood Small Urine Nitrate Negative Urine Bilirubin Negative Urine Urobilinogen 0.2-1.0 Ur Leukocyte Esterase Neg Urine RBC (Auto) 4 H Urine Microscopic WBC < 1 Urine Opiates Screen Urine Methadone Screen Ur Barbiturates Screen Ur Phencyclidine Scrn Ur Amphetamines Screen U Benzodiazepines Scrn U Oth Cocaine Metabols U Cannabinoids Screen Alcohol, Quantitative Assessment & Plan - Assessment and Plan (Free Text) Assessment: 32 yo male with no significant PMH came in because of nausea and vomiting since 3 days ago. Condition was preceded with 2 days of drinking alcohol. Denied fever , chills, chest pain or SOB. Admitted having abdominal pain earlier because of persistent vomiting but had since abated. 1. Dehydration secondary to poor oral intake and vomiting continue IV hydration with NSS 250cc/hr Zofran 4mg IV q 4hrs prn 2. Rhabdomyolysis repeat CPK
[2018-04-05] MEDS ORDERED: Sodium Chloride 0.9% 1,000 ML IV SCH (17:15)
--- NOTE | 2018-04-05 17:52 | US ---
HISTORY: vomiting, elevated bilirubin COMPARISON: 01/21/2017 TECHNIQUE: Sonographic evaluation of the abdomen. FINDINGS: LIVER: Measures 14.3 cm. Hepatopedal blood flow. Fatty infiltration manifest ultrasonographically as increased echogenicity of the liver parenchyma. No mass. No intrahepatic bile duct dilatation. GALLBLADDER: Sludge identified within the gallbladder. No evidence of gallstones or other significant finding COMMON BILE DUCT: Measures 5.01 mm. No stones. No dilatation. PANCREAS: Unremarkable as visualized. No mass. No ductal dilatation. RIGHT KIDNEY: Measures 4.8 x 10.2cm. Normal echogenicity. No calculus, mass, or hydronephrosis. LEFT KIDNEY: Measures 5.9 x 10.2cm. Normal echogenicity. No calculus, mass, or hydronephrosis. SPLEEN: Normal in size and contour. No mass. AORTA: No aneurysmal dilatation. IVC: Unremarkable. OTHER FINDINGS: None. IMPRESSION: No acute findings related to/accounting for the clinical presentation. [place] for change
--- NOTE | 2018-04-06 08:06 | CARD ---
APPROVED REPORT EKG Measurement Heart [id number] <Conclusion> Normal sinus rhythm Prolonged QT Abnormal ECG
[2018-04-06] MEDS ORDERED: Pantoprazole 40 mg EC Tab PO SCH (09:00)
--- NOTE | 2018-04-06 09:26 | CP.PCM.CON ---
History of Present Illness - History of Present Illness History of Present Illness: Patient signed out AMA; unable to be seen by psychiatry consult. Past Patient History - Tetanus Immunizations Tetanus Immunization: Unknown - Past Medical History & Family History Past Medical History?: No - Past Social History Alcohol: Occasional Drugs: Other (marijuana) - CARDIAC Hx Cardiac Disorders: No - PULMONARY Hx Respiratory Disorders: No - NEUROLOGICAL Hx Neurological Disorder: No - HEENT Hx HEENT Problems: No - RENAL Hx Chronic Kidney Disease: No - ENDOCRINE/METABOLIC Hx Endocrine Disorders: No - HEMATOLOGICAL/ONCOLOGICAL Hx Human Immunodeficiency Virus (HIV): No - INTEGUMENTARY Hx Dermatological Problems: No - MUSCULOSKELETAL/RHEUMATOLOGICAL Hx Falls: No - GASTROINTESTINAL Hx Gastrointestinal Disorders: No - GENITOURINARY/GYNECOLOGICAL Hx Genitourinary Disorders: No - PSYCHIATRIC Hx Anxiety: Yes Hx Depression: Yes Hx Paranoia: Yes - SURGICAL HISTORY Hx Surgeries: No - ANESTHESIA Hx Anesthesia: No Meds Allergies/Adverse Reactions: Allergies Allergy/AdvReac Type Severity Reaction Status Date / Time No Known Allergies Allergy Verified 04/05/18 13:21 - Medications Medications: Current Medications Sodium Chloride (Sodium Chloride 0.9%) 1,000 mls @ 250 mls/hr IV .Q4H ALEXUS Ondansetron HCl (Zofran Inj) 4 mg IVP Q4 PRN PRN Reason: Nausea/Vomiting Pantoprazole Sodium (Protonix Ec Tab) 40 mg PO DAILY [facility] Results - Vital Signs Recent Vital Signs: Last Vital Signs Temp 99.1 F 04/05/18 13:23 Pulse 59 L 04/05/18 21:17 Resp 18 04/05/18 13:23 BP 125/74 04/05/18 13:23 Pulse Ox 98 04/05/18 21:17 - Labs Result Diagrams: 04/05/18 14:05 04/05/18 14:05 Labs: Laboratory Results - last 24 hr 04/05/18 04/05/18 04/05/18 14:05 14:05 14:59 WBC 13.7 H RBC 5.66 Hgb 15.0 Hct 43.6 MCV 77.1 L D MCH 26.4 L MCHC 34.3 RDW 13.3 Plt Count 238 MPV 9.1 Neut % (Auto) 69.1 Lymph % (Auto) 16.2 L [place] % (Auto) 13.6 H Eos % (Auto) 0.5 Baso % (Auto) 0.6 Neut # (Auto) 9.5 H Lymph # (Auto) 2.2 [place] # (Auto) 1.9 H Eos # (Auto) 0.1 Baso # (Auto) 0.1 pCO2 pO2 HCO3 ABG pH ABG Total CO2 ABG O2 Saturation ABG O2 Content ABG Base Excess ABG Hemoglobin ABG Carboxyhemoglobin POC ABG HHb (Measured) ABG Methemoglobin ABG O2 Capacity Faisal Test A-a O2 Difference Hgb O2 Saturation FiO2 Sodium 127 L Potassium 2.6 L Chloride 74 L Carbon Dioxide 36 H Anion Gap 20 BUN 35 H Creatinine 1.6 H Est GFR ( Amer) > 60 Est GFR (Non-Af Amer) 50 Random Glucose 139 H Calcium 9.6 Magnesium Total Bilirubin 1.9 H AST 170 H ALT 62 Alkaline Phosphatase 85 Total Creatine Kinase Total Protein 9.2 H Albumin 5.2 H Globulin 4.0 H Albumin/Globulin Ratio 1.3 Urine Color Urine Clarity Urine pH Ur Specific [place] Urine Protein Urine Glucose (UA) Urine Ketones Urine Blood Urine Nitrate Urine Bilirubin Urine Urobilinogen Ur Leukocyte Esterase Urine RBC (Auto) Urine Microscopic WBC Urine Opiates Screen Negative Urine Methadone Screen Negative Ur Barbiturates Screen Negative Ur Phencyclidine Scrn Negative Ur Amphetamines Screen Negative U Benzodiazepines Scrn Negative U Oth Cocaine Metabols Negative U Cannabinoids Screen Negative Alcohol, Quantitative < 10 04/05/18 04/05/18 04/05/18 14:59 14:59 15:14 WBC RBC Hgb Hct MCV MCH MCHC RDW Plt Count MPV Neut % (Auto) Lymph % (Auto) [place] % (Auto) Eos % (Auto) Baso % (Auto) Neut # (Auto) Lymph # (Auto) [place] # (Auto) Eos # (Auto) Baso # (Auto) pCO2 45 pO2 66 L HCO3 34.3 H ABG pH 7.52 H ABG Total CO2 38.1 H ABG O2 Saturation 96.9 ABG O2 Content 19.1 ABG Base Excess 12.2 H ABG Hemoglobin 14.8 ABG Carboxyhemoglobin 3.2 H POC ABG HHb (Measured) 2.9 ABG Methemoglobin 2.2 ABG O2 Capacity 19.7 Faisal Test Yes A-a O2 Difference 27.0 Hgb O2 Saturation 91.6 L FiO2 21.0 Sodium Potassium Chloride Carbon Dioxide Anion Gap BUN Creatinine Est GFR ( Amer) Est GFR (Non-Af Amer) Random Glucose Calcium Magnesium 2.3 Total Bilirubin AST ALT Alkaline Phosphatase Total Creatine Kinase 5742 H Total Protein Albumin Globulin Albumin/Globulin Ratio Urine Color Straw Urine Clarity Clear Urine pH 6.0 Ur Specific [place] 1.005 Urine Protein Negative Urine Glucose (UA) Neg Urine Ketones Negative Urine Blood Small Urine Nitrate Negative Urine Bilirubin Negative Urine Urobilinogen 0.2-1.0 Ur Leukocyte Esterase Neg Urine RBC (Auto) 4 H Urine Microscopic WBC < 1 Urine Opiates Screen Urine Methadone Screen Ur Barbiturates Screen Ur Phencyclidine Scrn Ur Amphetamines Screen U Benzodiazepines Scrn U Oth Cocaine Metabols U Cannabinoids Screen Alcohol, Quantitative
== END 2018-04-05 20:12 | disposition left against medical advice (07) ==
LOC: H.ER 12:33 → H.ERHOLD 16:43
DX: M62.82 Rhabdomyolysis (principal); E86.0 Dehydration; R11.2 Nausea with vomiting, unspecified; F22 Delusional disorders; F32.9 Major depressive disorder, single episode, unspecified; F41.9 Anxiety disorder, unspecified
CPT/HCPCS: 76700; 80053; 81003; 82550; 82803; 83735; 85025; 93005; 96360; 96361; 99283; G0378; G0480; J3480; J7030